=== PATIENT | male | born 1980 | race Caucasian/White ===

== ENCOUNTER 2017-07-17 19:19 | Emergency (ER) | payer OTHER ==
[~2017-07-17] VITALS: Ht 170.2 cm; Wt 88.6 kg
[~2017-07-17 19:19] MED LIST: IBUP-1050 PO
[2017-07-17 19:23] VITALS: TEMP 36.5; Ht 170.2 cm; Wt 88.6 kg
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
[2017-07-17 20:59] VITALS: BP 128/81; PULSE 87; O2SAT 97
== END 2017-07-17 21:00 | disposition home or self-care (01) ==
LOC: C.EDB 19:22 → C.EDD 21:00
DX: M54.2 Cervicalgia (principal); M54.5 Low back pain; M25.561 Pain in right knee; M54.6 Pain in thoracic spine; V57.5XXA Driver of pick-up truck or van injured in collision with fixed or stationary object in traffic accident, initial encounter; F17.200 Nicotine dependence, unspecified, uncomplicated; F10.99 Alcohol use, unspecified with unspecified alcohol-induced disorder; Z98.890 Other specified postprocedural states